=== PATIENT | male | born 1940 | race Caucasian/White ===

== ENCOUNTER 2020-07-22 22:19 | Inpatient (IN) | payer OTHER ==
[~2020-07-22] VITALS: Ht 172.7 cm; Wt 75.6 kg
[2020-07-22 22:33] VITALS: Ht 172.7 cm; Wt 75.6 kg
--- NOTE | 2020-07-22 22:49 | NUR ---
RECIEVED VIA [facility] WITH C/O CHEST PAIN RADIATING TO LT SHOULDER. ASA GIVEN DURING TRANSPORT 20 GAUGE SALINE LOCK TO RT AC REPORTS JUST RELEASED TODAY FROM HOSPITAL FROM RECIEVING PACEMAKER FOR AFIB. VITALS STABLE WILL CONTINUE TO MONITOR
[2020-07-22 22:53] LABS: BASOPHIL % 0.3 % (0-2); PLATELET COUNT 284 x10^3mcL (130-400); RED CELL DISTRIBUTION WIDTH 13.5 % (11.5-14.5)
[2020-07-22 23:05] LABS: CALCIUM 9.4 mg/dL (8.5-10.1); CARBON DIOXIDE 23.9 mmol/L (21-32); CHLORIDE SERUM 97 mmol/L (98-107); CREATININE SERUM 1.2 mg/dL (0.7-1.3); GLUCOSE SERUM 131 mg/dL (74-106); SODIUM SERUM 132 mmol/L (136-145)
[2020-07-22 23:09] LABS: ALBUMIN 3.9 g/dL (3.4-5.0); ALKALINE PHOSPHATASE 44 U/L (46-116); ALT/SGPT 46 U/L (16-63); AST/SGOT 24 U/L (15-37); BILIRUBIN TOTAL 0.85 mg/dL (0.20-1.00); TOTAL PROTEIN, SERUM 7.5 g/dL (6.4-8.2)
[2020-07-23] VITALS (7 sets, daily range): BP systolic 111–152; BP diastolic 65–86
[2020-07-23] MEDS ORDERED: SCOPOLAMINE1 EACH TD (00:27)
[2020-07-23] MEDS ORDERED: MEDI-FIRST ASP325 MG PO (00:28)
[2020-07-23] MEDS ORDERED: IND10 PO (00:29)
--- NOTE | 2020-07-23 00:29 | NUR ---
PT OBSERVED RECLINED IN ED BED OB WITH EYES CLOSED CONNECTED TO FULL MONITORS WITH CIM STAFF AT BEDSIDE X 2. PT ROUSES TO AMBIENT NOISE AND THEN CLOSES EYES AGAIN. VS RECORDED.
[2020-07-23] MEDS ORDERED: FINASTERIDE5 M1 PO (00:30)
[2020-07-23] MEDS ORDERED: ATORVASTATIN CA10 M1 PO (00:30)
[2020-07-23] MEDS ORDERED: FLECAINIDE ACET50 MG PO (00:31)
[2020-07-23] MEDS ORDERED: HYDROCHLOROTHIA25 MG PO (00:32)
[2020-07-23] MEDS ORDERED: XOPENEX HFA INH (00:34)
[2020-07-23] MEDS ORDERED: MONTELUKAST SOD10 M1 PO (00:34)
[2020-07-23] MEDS ORDERED: MAGNESIUM400 M1 PO (00:34)
[2020-07-23] MEDS ORDERED: OMEPRAZOLE MAGN20 M1 PO (00:35)
[2020-07-23] MEDS ORDERED: TERAZOSIN HCL2 MG PO (00:35)
--- NOTE | 2020-07-23 00:58 | NUR ---
PT EXPRESSED CONCERN ABOUT MISSING EVENING MEDS. CALLED DR SLAUGHTER. VERBAL ORDER REC'D FOR INDERAL AND FLECANAIDE PO STARTING WITH FIRST DOSE NOW AND CONTINUING AT 0900 WITH MORNING MEDS.
--- NOTE | 2020-07-23 01:14 | NUR ---
REPORT CALLED TO MADELINE EVANS. DOSES ORDERED NOW ARE TO BE ADMINISTERED UPSTAIRS.
--- NOTE | 2020-07-23 01:20 | NUR ---
Transferred to [facility] endorced to Jany CORREA RECIEVING, ALL BELONGINGS TAKEN WITH PATIENT.
--- NOTE | 2020-07-23 01:32 | NUR ---
PT. ADMITTED TO THE MST FLOOR FROM ER AT 0132 07/23/20 VIA [facility] W/ 2 CUSTODIAL GUARDS AND TYPE MAPPER. VITALS: BP: 130/86 TEMP: 97.8 HR: 94, SPO2: 96% ON RA, RR 18. RR EVEN AND UNLABORED ON RA, CHEST RISE SYMT, TELE 45 NSR PACED ON DEMAND, L UPPER CHEST PACE MAKER DRESSING DCI, PT. EDUCATED TO ELEVATE ARM SLING IN PLACE. NO ACUTE CHANGE/ DISTRESS NOTED, ALL SAFETY MEASURES IN PLACE, 2 GUARDS AT BEDSIDE, WILL CONT TO MONITOR.
[2020-07-23 03:02] LABS: MAGNESIUM 1.8 mg/dL (1.8-2.4)
[2020-07-23 03:28] LABS: CHOLESTEROL/HDL RATIO 2.7
--- NOTE | 2020-07-23 06:49 | NUR ---
PT. RESTING IN BED, NO ACUTE CHANGE/ DISTRESS NOTED, SAFETY MEASURES IN PLACE, WILL ENDORSE TO DAY SHIFT NURSE.
[2020-07-23 07:51] LABS: CALCIUM 9.3 mg/dL (8.5-10.1); CHLORIDE SERUM 100 mmol/L (98-107); CREATININE SERUM 1.2 mg/dL (0.7-1.3); GLUCOSE SERUM 101 mg/dL (74-106); POTASSIUM SERUM 4.7 mmol/L (3.5-5.1); SODIUM SERUM 136 mmol/L (136-145)
--- NOTE | 2020-07-23 20:11 | NUR ---
RECIEVED PATIENT FROM DAY SHIFT NURSE. PT RESTING IN BED WATCHING TV. RR EVEN AND UNLABORED. A&O X4. NO S/SX OF ADN. RFA IV CDI AND PATENT. BED LOCKED AND LOWERED. CALL LIGHT WITHIN REACH. WILL CONTINUE WITH PLAN OF CARE.
--- NOTE | 2020-07-23 22:29 | NUR ---
VALERI FROM [facility] CALLED, PT SCHEDULED FOR LEXISCAN IN AM. STATED TO KEEP NPO AFTER MIDNIGHT, NO CAFFEINE, HOLD INDERAL AM DOSE.
--- NOTE | 2020-07-24 01:10 | NUR ---
I HAVE REVIEWED THE DATA COLLECTION BY ORIENTEE (NAME): KEVIN KAM ENTERED ON (DATE/TIME): 07/23/2020 2349H I CONCUR WITH THE DATA AND ANY EXCEPTIONS OR COMMENTS ARE LISTED BELOW:
[2020-07-24 04:32] VITALS: BP 139/78
[2020-07-24 04:52] VITALS: BP 104/64
--- NOTE | 2020-07-24 06:36 | NUR ---
PT SLEEPING IN BED. RR EVEN AND UNLABORED. NO S/SX OF ADN. BED LOCKED AND LOWERED. CALL LIGHT WITHIN REACH. WILL CONTINUE TO MONITOR.
[2020-07-24 06:53] LABS: BASOPHIL % 0.7 % (0-2); PLATELET COUNT 251 x10^3mcL (130-400); RED CELL DISTRIBUTION WIDTH 13.2 % (11.5-14.5)
[2020-07-24 07:29] LABS: CARBON DIOXIDE 24.9 mmol/L (21-32); CHLORIDE SERUM 101 mmol/L (98-107); GLUCOSE SERUM 99 mg/dL (74-106); POTASSIUM SERUM 4.1 mmol/L (3.5-5.1); SODIUM SERUM 136 mmol/L (136-145)
--- NOTE | 2020-07-24 07:30 | NUR ---
RECEIVED REPORT FROM NIGHT NURSE. PATIENT RESTING IN BED, RESPIRATIONS EVEN AND UL ON RA. DENIES PAIN AND CARDIAC DISCOMFORT. GAURDS AT BEDSIDE. BED IN LOWEST POSITION, CALL LIGHT IN REACH, SAFETY MEASURES IN PLACE.
[2020-07-24 08:27] VITALS: BP 111/84
[2020-07-24 14:50] VITALS: BP 111/84
--- NOTE | 2020-07-24 17:08 | NUR ---
RECEIVED DISCHARGE ORDER. REMOVED IV, CATH INTACT, BANDAIN APPLIED, NO BLEEDING NOTED. PRINTED DISCHARGE INSTRUCTIONS GIVEN TO PT/GAURDS AND EXPLAINED. ALL QUESTIONS ANSWERED AT THIS TIME. PT/GAURDS VERBALIZED UNDERSTANDING OF DISCHARGE PACKET/INSTRUCTIONS.
== END 2020-07-24 17:10 | disposition other institution (70) | DRG 303 ==
LOC: ED 22:19 → DU 23:30
PROVIDERS: Emergency Medicine; ADMIT Internal Medicine; ATTEND Internal Medicine
DX: I25.119 Atherosclerotic heart disease of native coronary artery with unspecified angina pectoris (principal); Z20.828 Contact with and (suspected) exposure to other viral communicable diseases; I49.5 Sick sinus syndrome; Z95.0 Presence of cardiac pacemaker; I10 Essential (primary) hypertension; J44.9 Chronic obstructive pulmonary disease, unspecified; I25.2 Old myocardial infarction; R09.1 Pleurisy; I48.0 Paroxysmal atrial fibrillation; N40.0 Benign prostatic hyperplasia without lower urinary tract symptoms
CPT/HCPCS: A9500; G0378; J2270; J2785